=== PATIENT | female | born 1995 | race Caucasian/White ===

== ENCOUNTER 2023-02-16 14:05 | Inpatient (IN) | payer BC ==
[~2023-02-16] VITALS: Ht 165.1 cm; Wt 108.9 kg
--- NOTE | ~2023-02-16 | OR ---
[facility] [address] [place] [id number] Draft DATE OF OPERATION: 03/20/2023 SURGEON: Ralph Urbina DO PREOPERATIVE DIAGNOSES: 1. Intrauterine at 39 weeks gestation. 2. History of prior . 3. Gestational thrombocytopenia. 4. History of hemorrhage. POSTOPERATIVE DIAGNOSES: 1. Intrauterine at 39 weeks gestation. 2. History of prior . 3. Gestational thrombocytopenia. 4. History of hemorrhage. PROCEDURES PERFORMED: Repeat low transverse section with vacuum assist. MOSAIC TECHNICIAN: Alla Nash MD. ANESTHESIA: Spinal with postoperative TAP blocks. ESTIMATED BLOOD LOSS: 600 mL. DRAINS: Swann to gravity. COMPLICATIONS: None. FINDINGS: Delivery of a viable male in the LOP position, deflexed, requiring vacuum to help guide the head through the hysterotomy. Normal uterus, other than thin lower segment. Normal tubes and ovaries bilaterally. INDICATIONS: PATIENT NAME: ARAVIND SOFIA [facility] OPERATIVE REPORT DATE OF : [birth year] REPORT #: [id number] PHYSICIAN: RALPH URBINA DO (JD) PCP: NO PRIMARY CARE PHYSICIAN REPORT IS CONFIDENTIAL AND NOT TO BE RELEASED WITHOUT AUTHORIZATION [facility] [address] [place] [id number] Draft Ms. Sofia is a very pleasant 27-year-old G2, P1 with intrauterine at 39 weeks and 2 days gestation, who presents for repeat low transverse delivery. First was for breech presentation. The patient had intraoperative/ hemorrhage. The patient had desired trial of vaginal delivery after , however, due to size and low-lying placenta that has since resolved. The patient elects for repeat low transverse delivery. Risks, benefits, and alternatives were discussed in detail with the patient. The patient understands and wished to proceed with the procedure. TECHNIQUE: The patient was taken to the operating room where a time-out was performed to confirm correct patient and correct procedure. Spinal anesthesia was adequately established. The patient was prepped and draped in the dorsal lithotomy position with her feet in Yellofin stirrups. ICPs were on and running and no preop heparin was indicated. She did receive Ancef 3 g preoperatively per SCIP protocol. Once spinal was noted to be adequate, a Pfannenstiel incision was made through the prior scar and carried down to the fascia. The fascia was nicked in the midline and fascial incision was extended bilaterally using curved Arshad scissors. The fascia was grasped with Ofelia's, elevated and the underlying rectus dissected off bluntly and sharply. The peritoneum was grasped with hemostats, elevated and incised sharply. Peritoneal incision was extended bilaterally using curved Arshad scissors. The lower uterine segment was identified and Deandre self retractor was placed. Hysterotomy was performed notable for clear fluid. Hysterotomy was extended bilaterally using blunt dissection. The surgeon's hand was placed in the uterine cavity and the baby was noted to be in the LOP position. The head was deflexed and even with the assistance of gentle fundal pressure, the head would rotate and was unable to easily be delivered through the hysterotomy. Reviewed option for J incision versus vacuum-assisted delivery and the patient desires vacuum-assisted delivery. Vacuum was placed on the flexion point, suction was obtained to the green zone and this was used to gently guide the baby's head through the hysterotomy. Since the head was brought through the hysterotomy with one gentle pull, the pressure was released and the was delivered with the assistance of fundal pressure. Nuchal x1 was identified, loose and was easily reduced. was vigorous and cried at delivery. Cord blood was obtained for routine analysis. After the cord was doubly clamped and cut, the handed to the waiting pediatric team for further care. The placenta was expressed, intact with a centrally inserted three-vessel cord. One small was noted to be retained and this was gently removed, inspected and missing suction of the placenta was identified with placental inspection. The remainder of the uterus was cleared of any remaining products of conception or clot. Pitocin was administered per protocol. Hysterotomy was then closed in two layers, the 1st being a running locked closer of 0 Monocryl and the 2nd being a running imbricating stitch of 0 Monocryl in a vertical manner. The pelvis was irrigated and made hemostatic with judicious use of Bovie electrocautery. Normal tubes, ovaries, and uterus were PATIENT NAME: ARAVIND SOFIA [facility] REPORT DATE OF : [birth year] REPORT #: [id number] PHYSICIAN: RALPH URBINA (VIJAY) DO PCP: NO PRIMARY CARE PHYSICIAN REPORT IS CONFIDENTIAL AND NOT TO BE RELEASED WITHOUT AUTHORIZATION [facility] [address] [place] [id number] Draft identified and I did review/relay the findings of the lower uterine segment to the patient and her . I do not believe this would preclude them from attempting another in the future, but I would recommend against consideration of attempted vaginal delivery. After ensuring the pelvis was hemostatic, peritoneum was closed with 2-0 Vicryl in a running nonlocked manner after the Deandre was removed. The rectus was made hemostatic with Bovie electrocautery and it was plicated in the midline using three interrupted sutures of 0 Vicryl. Fascia was reapproximated using 0 Vicryl in a running nonlocked manner. Subcu was irrigated, made hemostatic with Bovie electrocautery and then plicated with 3-0 Vicryl in a running nonlocked manner. Skin was reapproximated using 4-0 Vicryl per the patient request. The uterus was Crede'd and small amount of clot was noted inside the uterus. This was expressed. The patient remained in the OR for postoperative TAP blocks per Anesthesia. Sponge, needle and instrument count was correct x2 at the end of the procedure. Dr. Nash was present and participated in all portions of the procedure. DO LVEON Braswell/FEDE /[id number] Copies: ~ PATIENT NAME: ARAVIND SOFIA [facility] REPORT DATE OF : [birth year] REPORT #: [id number] PHYSICIAN: RALPH URBINA DO (JD) PCP: NO PRIMARY CARE PHYSICIAN REPORT IS CONFIDENTIAL AND NOT TO BE RELEASED WITHOUT AUTHORIZATION
[2023-03-20 06:01] VITALS: BP 126/72
--- NOTE | 2023-03-20 06:13 | NUR ---
PT WAS SWABBED FOR COVID.
[2023-03-20 06:51] LABS: HEMATOCRIT 41.4 % (35.0-50.0); HEMOGLOBIN 13.5 g/dL (12.0-18.0); MCH 28.3 (27-36); MCHC 32.6 g/dl (30-36); MCV 86.8 fl (81-99); RBC 4.76 M/ul (4.3-5.7); RDW 14.8 (10.5-15.0)
[2023-03-20 06:53] LABS: INFLUENZA B NAA NEGATIVE (NEGATIVE); RESPIRATORY SYNCYTIAL VIR NAA NEGATIVE (NEGATIVE)
[2023-03-20 07:08] LABS: AMPHETAMINES, URINE NEGATIVE (NEGATIVE); BARBITURATES, URINE NEGATIVE (NEGATIVE); BENZODIAZEPINE, URINE NEGATIVE (NEGATIVE); BUPRENORPHINE, URINE NEGATIVE (NEGATIVE); CANNABINOID, URINE NEGATIVE (NEGATIVE); COCAINE, URINE NEGATIVE (NEGATIVE); ECSTASY, URINE NEGATIVE (NEGATIVE); FENTANYL, URINE NEGATIVE (NEGATIVE); METHADONE, URINE NEGATIVE (NEGATIVE); OPIATES, URINE NEGATIVE (NEGATIVE); OXYCODONE, URINE NEGATIVE (NEGATIVE); PHENCYCLIDINE, URINE NEGATIVE (NEGATIVE)
[2023-03-20 07:57] LABS: ABO A; ANTIBODY SCREEN NEGATIVE; RH POSITIVE
[2023-03-20 09:21] VITALS: BP 105/55
--- NOTE | 2023-03-20 09:26 | NUR ---
[facility]IV[facility] PACU WITH NO C/O'S. 0842 BREAST FEEDING BABY WITH [facility] RN'S ASSISTANCE. SPOUSE AT BEDSIDE. 0850 FEEDING PT ICE CHIPS NEEDED. 0910 REPORT GIVEN TO [facility] RN. MOM CONTINUES TO BREAST FEED. BED PLUGGED IN AND CALL LITE IN PLACE.
[2023-03-21 05:20] LABS: HEMATOCRIT 29.6 % (35.0-50.0); HEMOGLOBIN 9.8 g/dL (12.0-18.0); MCH 28.4 (27-36); MCV 86.1 fl (81-99); RBC 3.44 M/ul (4.3-5.7); RDW 14.8 (10.5-15.0)
--- NOTE | 2023-03-21 15:26 | PR ---
[facility] [address] [place] [address] Signed PP Progress Notes Datetime Report Generated by CPN: 03/21/2023 15:26 SUBJECTIVE: [id number] Pain: Within Normal Limits Nausea/Vomiting: Denies Flatus: Yes Bowel Movement: No Vital Signs: [id number] Vital Signs: Reviewed; Within Normal Limits Cardiovascular: Normal Respiratory: Normal Abdomen/Uterus: Normal Lochia: Normal Vulva/Perineum: Not Done Breasts: Not Done CVA Tenderness: Normal Extremities: Normal Incision: Normal Progress: Normal Exam Comments: Fundus firm U-2 nontender. Incision healing well IMPRESSION/PLAN/PROCEDURES: [id number] Impression: Normal Progression Plan: Continue Present Management Progress Notes: Pt seen and examined. Doing well. Ambulating, voiding, and tolerating full diet. Pain and lochia minimal. well. No concerns. Anticipate d/c home tomorrow. Hgb 9.8 Signing Physician: Ralph Urbina DO Copies: ~ *Electronically Signed* 03/21/23 1526 RALPH URBINA (VIJAY) DO PATIENT NAME: ARAVIND BEAN [facility] PROGRESS NOTE DATE OF : 93 PHYSICIAN: RALPH URBINA (VIJAY) DO RPT #: [id number] REPORT IS CONFIDENTIAL AND NOT TO BE RELEASED WITHOUT AUTHORIZATION
--- NOTE | 2023-03-22 07:04 | PR ---
[facility] [address] [place], [place] [address] Signed PP Progress Notes Datetime Report Generated by CPN: 03/22/2023 07:04 SUBJECTIVE: [id number] Pain: Within Normal Limits Nausea/Vomiting: Denies Flatus: Yes Bowel Movement: No Vital Signs: [id number] Vital Signs: Reviewed; Within Normal Limits Cardiovascular: Normal Respiratory: Normal Abdomen/Uterus: Normal Lochia: Normal Vulva/Perineum: Not Done Breasts: Not Done CVA Tenderness: Normal Extremities: Normal Incision: Normal Progress: Normal Exam Comments: Fundus firm U-2 nontender. Incision healing well. IMPRESSION/PLAN/PROCEDURES: [id number] Impression: Normal Progression Plan: Discharge Progress Notes: Pt seen and examined. Doing well. Ambulating, voiding, and tolerating full diet. Pain and lochia minimal. well. No concerns. Desires d/c home. Reviewed d/c instruction in detail. All questions answered. Planning IUD for pp contraception. F/U Urbina 2 wks Signing Physician: Ralph Urbina DO Copies: ~ *Electronically Signed* 03/22/23 0704 RALPH URBINA (VIJAY) DO PATIENT NAME: ARAVIND BEAN PROGRESS NOTE DATE OF : 93 PHYSICIAN: RALPH URBINA (JD) DO RPT #: [id number] REPORT IS CONFIDENTIAL AND NOT TO BE RELEASED WITHOUT AUTHORIZATION
--- NOTE | 2023-03-22 10:16 | NUR ---
BABY RESTING QUIETLY ON MOM'S CHEST. BOTH PARENTS DENIED NEEDS. CONSENTED TO PRAYER. PRAYED FOR GOOD BEGINNINGS AND ONGONIG BLESSING.
== END 2023-03-22 11:25 | disposition home or self-care (01) | DRG 787 ==
LOC: FBC 03-20 05:30
PROVIDERS: ADMIT Obstetrics & Gynecology; ATTEND Obstetrics & Gynecology
PROC: 10D00Z1 Extraction of Products of Conception, Low, Open Approach (ICD-10-PCS; principal; 2023-03-20 07:30)
DX: O34.211 Maternal care for low transverse scar from previous cesarean delivery (principal); O99.12 Other diseases of the blood and blood-forming organs and certain disorders involving the immune mechanism complicating childbirth; Z37.0 Single live birth; Z3A.39 39 weeks gestation of pregnancy; Z11.52 Encounter for screening for COVID-19; D69.6 Thrombocytopenia, unspecified; O69.1XX0 Labor and delivery complicated by cord around neck, with compression, not applicable or unspecified
CPT/HCPCS: 01961; 36415; 76942; 80307; 85027; 86850; 86900; 86901; 87502; A9270; C9803; J0690; J1100; J1650; J1790; J1885; J2001; J2274; J2405; J2590; J2795; J7121; U0002

== ENCOUNTER 2024-03-31 07:33 | Emergency (ER) | payer BC ==
[~2024-03-31] VITALS: Ht 152.4 cm; Wt 93.9 kg
[2024-03-31 08:42] VITALS: BP 121/77
== END 2024-03-31 08:43 | disposition home or self-care (01) ==
LOC: ED 07:33
DX: J02.0 Streptococcal pharyngitis (principal)
CPT/HCPCS: 87651; 99283